=== PATIENT | female | born 1955 | race Caucasian/White ===

== ENCOUNTER 2021-05-03 00:11 | Day surgery (SDC) | payer MEDICARE, MEDICAID, SELFPAY ==
[2021-04-23 14:35] VITALS: BMI 20.7
--- NOTE | 2021-04-23 14:51 | PC.NURSE ---
Report to the Outpatient Waiting Room, entrance under the green pavilion located off [facility], at time __10:00AM on date _05/03/21 . OR Time: ___12:00PM . - You and your visitor will be asked a series of questions to screen for COVID 19 for your protection. - A mask is required within the hospital. - Only one visitor is allowed at this time. Patient visitors will be guided where to wait when not with patient. Preoperative COVID Testing Requirements: No COVID Test needed if: (proof is required; if not received patient will have Rapid Test prior to entry) - Patient has received COVID Vaccine at least 14 days prior to procedure date or - Patient has positive COVID test result within last 90 days of surgery date. COVID Test needed if above criteria is not met If not COVID vaccinated a COVID test must be conducted within 72 hours of surgery and patient is asked to isolate self from time of testing until procedure. You will go to the [facility] for your COVID testing. The [facility] Testing site is located at the corner of [address] [facility]. You will only be called if COVID results are positive and your surgeon may reschedule your elective surgery date. Patients may have clear liquids (water, carbonated beverages, clear teas, apple juice) until 3 hours prior to surgery with a maximum of 20 ounces. - No food from midnight until time of surgery 9:00AM - Infants may have breast milk until 4 hours before surgery, formula 6 hours prior to surgery. - Children will be allowed to drink immediately following surgery. If applicable, please bring a bottle or sippy cup to assist with drinking. Juice, water, soda, and popsicles are readily available. For infants on formula, please bring formula the day of surgery. Pacifiers are allowed. Take the following medications with a SIP of water the morning of surgery: NONE Medications to discontinue per physician NONE Date to take last dose Please no make-up, nail japanese, hairspray, perfume, deodorant, or body powder the day of surgery. No jewelry (including any body piercings) or valuables the day of surgery, leave them at home. Please take a shower or bath the night before, or the morning of, surgery with an antibacterial soap. Wear comfortable, loose fitting clothing. Children are encouraged to wear pajamas. - Jewelry must be removed prior to entering the operating room. Rings and piercings that are not removed may be cut off. - The hospital will not accept responsibility for valuables. - Please leave all valuables, including medications, at home the day of surgery. If you are going home after surgery, a licensed chair car driver must drive you home. - NO public transportation without another adult. - We recommend that an adult stay with you for 24 hours following discharge. - We also recommend that you do not drive, make important decision, drink alcoholic beverages, or take any drugs that were not prescribed by your health care provider for at least 24 hours after your discharge time. For Pediatric surgeries, we recommend two adults accompany the child home (only one inside the building at this time). Follow any additional instructions given to you from your surgeon. Telephone instructions given to ____PATIENT and asked if any additional questions and then verbalized understanding. Patient advised to call surgeon office or pre surgery nurse liaison [phone] if any additional questions.
[2021-05-03] VITALS (9 sets, daily range): BP systolic 101–116; BP diastolic 61–76; PULSE 59–75; RESP 12–16; TEMP 36.3–36.5; O2SAT 97–100
[2021-05-03] MEDS: LACTATED RINGERS 1,000 ML 30 ML IV CONT (10:40)
[2021-05-03] MEDS: KETOROLAC 15 MG/ML VIAL (*BKC) IV PUSH (10:47)
[2021-05-03] MEDS: ACETAMINOPHEN 500 MG TABLET 1000 MG PO (10:47)
[2021-05-03 10:59] LABS: Hemoglobin 12.4 g/dL (12.0-15.0); Mean Corpuscular HGB Conc 35.4 g/dl (32-36); Mean Corpuscular Hemoglobin 32.5 pg (26-34); Mean Corpuscular Volume 91.9 fl (80-100); Mean Platelet Volume 11.1 fl (7.4-10.4); Platelet Count Result 238 k/mm3 (150-375); Red Blood Count 3.81 M/mm3 (4.2-5.4); Red Cell Distribution Width 13.2 % (11.5-14.5); White Blood Count 5.4 K/mm3 (4.5-10.0)
--- NOTE | 2021-05-03 11:16 | P.PNAN_ITS ---
Anes - Initial Pre Proc Eval Procedure: Operation Date: 05/03/21 12:00 Proposed Procedures p Total Vaginal Hysterectomy with Cystoscopy - Erlinda Thayer MD Date/Time: 05/03/21 11:16 Surgeon: Erlinda Thayer MD Pre Op Diagnosis: Pelvic Pain, abnormal pap Patient Data Age: 66 Gender: F Height: 1.6 m Weight: 51.3 kg Last Vital Signs Temp 36.3 C L 05/03/21 10:50 Pulse 65 05/03/21 10:50 Resp 16 05/03/21 10:50 BP 113/73 05/03/21 10:50 Pulse Ox 100 05/03/21 10:50 Allergies Allergy/AdvReac Type Severity Reaction Status Date / Time penicillin G Allergy Hives Verified 05/03/21 10:28 Home Medications Medication Instructions Recorded Confirmed Type cyanocobalamin (vitamin B-12) 1,000 mcg IM MONTHLY 04/23/21 05/03/21 History triamterene-hydrochlorothiazid 1 cap PO QAM 04/23/21 05/03/21 History nitrofurantoin monohyd/m-cryst 100 mg PO BID 05/03/21 05/03/21 History Laboratory Tests 05/03/21 10:32 WBC 5.4 K/mm3 K/mm3 (4.5-10.0) RBC 3.81 M/mm3 L M/mm3 (4.2-5.4) Hgb 12.4 g/dL g/dL (12.0-15.0) Hct 35.0 % L % (37.0-47.0) MCV 91.9 fl fl (80-100) MCH 32.5 pg pg (26-34) MCHC 35.4 g/dl g/dl (32-36) RDW 13.2 % % (11.5-14.5) Plt Count 238 k/mm3 k/mm3 (150-375) MPV 11.1 fl H fl (7.4-10.4) Patient hx anesthesia problems: none Family hx anesthesia problems: none Results Review: All pre-operative results and documents have been reviewed as part of the pre-operative evaluation. [facility] Past Medical History Medical History Acute renal failure COPD (chronic obstructive pulmonary disease) Hypertension Liver disease Social History Social History Smoking packs per day: 1 Smoking cigarettes per day: 20.0 Years smoked: 30 Smoking pack-years: 30.00 Smoking status: Current every day smoker Alcohol intake: current Drinks per week: 2 Substance use: never Living arrangements: with family Additional living arrangements comments: [facility] Spiritual care concerns: No Anes - Eval Final PreProcedure Day of Procedure 05/03/21 11:16 Patient weight: normal Heart: regular rate and rhythm Lungs: decreased breath sounds Airway: Mallampati scale class II Neurological: alert and oriented Last oral intake: >/= 8 hours ASA classification: III Emergent: no Anesthetic plan: proceed Anesthesia type and monitoring: general ETT and standard monitoring Results Review: All pre-operative results and documents have been reviewed as part of the pre-operative evaluation. Informed Consent: The patient's anesthetic plan and its attendant risks and benefits were discussed with the patient/family/POA. Questions were solicited and answers provided to the satisfaction of the patient/family/POA.
--- NOTE | 2021-05-03 12:06 | PM.HPGS ---
History of Present Illness History of Present Illness Consent: Risks, benefits, and alternatives have been discussed and questions answered. Patient agrees to proceed with procedure. Chief complaint: Pelvic Pain, abnormal pap Narrative: Joy Villar is a 66 year old female here for scheduled surgery. plan is Laparoscopic assisted vaginal hysterectomy with VNOTES and BSO with cystoscopy Risk/benefits/alternatives all discussed Review of Systems Review of Systems: All systems reviewed & are unremarkable except as noted in HPI and below PMFSH Past Medical History Medical History (Updated 05/03/21 @ 12:09 by Erlinda Thayer MD) Acute renal failure COPD (chronic obstructive pulmonary disease) Hypertension Liver disease Social History Social History Smoking packs per day: 1 Smoking cigarettes per day: 20.0 Years smoked: 30 Smoking pack-years: 30.00 Smoking status: Current every day smoker Alcohol intake: current Drinks per week: 2 Substance use: never Living arrangements: with family Additional living arrangements comments: [facility] Spiritual care concerns: No Meds Home Medications and Allergies Home Medications Medication Instructions Recorded Confirmed Type cyanocobalamin (vitamin B-12) 1,000 mcg IM MONTHLY 04/23/21 05/03/21 History triamterene-hydrochlorothiazid 1 cap PO QAM 04/23/21 05/03/21 History nitrofurantoin monohyd/m-cryst 100 mg PO BID 05/03/21 05/03/21 History Allergies Allergy/AdvReac Type Severity Reaction Status Date / Time penicillin G Allergy Hives Verified 05/03/21 10:28 Vital Signs Vital Signs - 24 hr 05/03/21 10:50 Temperature 36.3 C L Pulse Rate 65 Respiratory Rate 16 Blood Pressure 113/73 Pulse Oximetry 100 Exam Narrative: Appears Older than stated age, normal cephalic/atraumatic Const: General: cooperative HENMT: Head: normal to inspection General nose exam: Normal external nose present Chest: Chest palpation & inspection: normal inspection of the chest Resp: Effort & Inspection: normal respiratory effort and able to speak in complete sentences Cardio: Jugular venous distension: no JVD Rate: regular rate Rhythm: regular rhythm GI: Inspection: normal to inspection Skin: General skin exam: normal color and no rashes or lesions noted Neuro: General: oriented to person, oriented to place and oriented to time Extrem: General: normal to inspection Psych: Appearance: grossly normal Assessment and Plan Assessment and plan (1) History of cholecystectomy: Code(s): Z90.49 - Acquired absence of other specified parts of digestive tract Status: Acute (2) Pelvic pain: Code(s): R10.2 - Pelvic and perineal pain Status: Acute Assessment and Plan: Plan is for LAVH with BSO and cystoscopypascale using VNOTES, possible Vaginal hysterectomy with BSO/Cysto without laparoscopy Will send Rx to pharmacy electronically (3) History of abnormal cervical Pap smear: Code(s): Z87.42 - Personal history of other diseases of the female genital tract Status: Acute
--- NOTE | 2021-05-03 12:10 | WPDHPUPDATE1 ---
History and Physical Update Update Date/Time: 05/03/21 12:10 History and Physical has been reviewed, including an updated exam of the patient. There are NO changes in the patient's condition. Risks, benefits, and alternatives have been discussed and questions answered. Patient agrees to proceed with procedure.
[2021-05-03] MEDS: CLINDAMYCIN 900 MG/D5W 50 ML 900 MG/50 ML PIGGYBACK 50 MG IVPB (12:55)
[2021-05-03] MEDS: LIDO 1%/EPINEPHRINE 1:100,000 50 ML VIAL 20 ML INFILTRATE (13:17)
--- NOTE | 2021-05-03 13:57 | W.PM.PROC2 ---
Procedure Note - Detailed Date of Procedure 05/03/21 Pre-op Diagnosis Pelvic Pain, abnormal pap Post-op Diagnosis same Procedure Performed Total vaginal hysterectomy with partial right salpingectomy, cystoscopy Surgeon Erlinda Thayer MD Anesthesia general Indications Recurrent abnormal paps with cervix flush with vaginal wall making ongoing treatments difficult. She also complained of some pelvic pain with intercourse associated with her cervix. Findings Atrophic uterus and cervix. Unable to identify atrophic ovaries and only portion of right fallopian tube identified and removed Description of Procedure The patient underwent general anesthesia. Once adequate she was prepared and draped in the dorsal lithotomy position in [facility] [place]. Aguilar catheter placed. A speculum was used to visualize the cervix and tenaculum placed on anterior and posterior lips of the cervix. 1% lidocaine with epinephrine used to inject the vaginal mucosa and the Bovie was used to make a circumferential incision around the cervix. The bladder was dissected off the cervix and anteiror colpotomy created with mayos and right angle retractor placed within the peritoneal cavity. The posterior mucosa was dissected off the cervix carefully avoiding the bowel and the posterior culdesac entered and stretched laterally. The uterosacral ligaments were exposed with right angle after being placed in the posterior culdesac and 10mm ligasure was used to cauterize through this with good hemostasis. The cardinal ligaments were then cauterized and the uterine arteries then cauterized and transected bilaterally with ligasure. The round ligament cauterized and bilateral broadligaments transected through what was thought to be Uteroovarian ligament. This freed up the uterus and it was removed through the vagina. The right fallopian tube was easily identified intimate with the round ligament. This portion was dissected free and removed. No ovary was identified on the right, with the exception of some streak appearing tissue which could have been remnant ovary but was left in place as not of significant volume. The left fallopian tube were not visibly apparent nor able to be palpated blindly. So these, if present were left in place. There was not active bleeding. EBL for the entire case was approximately 2cc. (<10cc). The vaginal cuff was closed with 0-vicryl suture x2 tied in the midline. The vagina was packed with gauze with premarin cream. The aguilar was removed and cystoscopy performed and bilateral ureteral jets were noted. The cystoscope removed and aguilar catheter replaced. The patient tolerated the procedure well. All sponge lap and needles were correct x3 Estimated Blood Loss 2 Drains No Packing Yes (vaginal) Pathology yes (uterus, cervix and right fallopian tube) Complications No immediate complications Condition stable Disposition PACU
[2021-05-03] MEDS: fentaNYL CITRATE INJ (*CRX) 100 MCG/2 ML VIAL 25 MCG IV PUSH ×3 (14:28→14:36)
[2021-05-03] MEDS: NITROFURANTOIN MONOHYD MACROCR 100 MG CAP PO (20:46)
[2021-05-03] MEDS: HYDROcodone/acetaminophen (*CRX) 5-325 MG TABLET 1 TAB PO (21:26)
--- NOTE | 2021-05-04 00:21 | PC.NURSE ---
2330 -- up to BR and voided, 150ml pale yellow urine noted in measuring hat and more in toilet, pt. anxious to go home 2349 -- discharged home as ordered
== END 2021-05-03 23:50 | disposition home or self-care (01) ==
LOC: ANHSURGERY 14:26 → ANHOB2 15:28
PROVIDERS: PCP Family Medicine; Visit Provider Obstetrics & Gynecology
PROC: (CPT 58260; principal; 2021-05-03 12:00)
DX: R10.2 Pelvic and perineal pain (principal); N84.0 Polyp of corpus uteri; D25.2 Subserosal leiomyoma of uterus; N73.6 Female pelvic peritoneal adhesions (postinfective); Z87.42 Personal history of other diseases of the female genital tract; R87.810 Cervical high risk human papillomavirus (HPV) DNA test positive; J44.9 Chronic obstructive pulmonary disease, unspecified; I10 Essential (primary) hypertension; K76.9 Liver disease, unspecified; F17.210 Nicotine dependence, cigarettes, uncomplicated; Z90.49 Acquired absence of other specified parts of digestive tract
CPT/HCPCS: 58262; 36415; 85027; 86850; 86900; 86901; 88302; 88305; 88307; 99199; A9270; J0330; J1100; J1580; J1885; J2250; J2405; J2704; J3010; J7030; J7120